=== PATIENT | female | born 1955 | race Caucasian/White ===

== ENCOUNTER 2017-04-02 11:58 | Day surgery (SDC) | payer MEDICAID ==
[~2017-04-02 11:58] MED LIST: Cefuroxime 10 MG/ML SYRINGE EYERT SCH; Lidocaine 1% PF 2 ML SDV INJECT SCH; Pilocarpine 4% Ophth Soln 15 ML Bot EYERT SCH
[2017-04-02] MEDS: Polymyxin B/Trimethoprim 10 ML Bottle EYERT SCH ×3 (14:12→15:41)
[2017-04-02] MEDS: Brimonidine 0.2% Ophth Soln 5 ML Bottle EYERT SCH ×3 (14:17→15:41)
[2017-04-02] MEDS: Phenylephrine 2.5% Ophth Soln 2 ML Bot EYERT SCH ×5 (14:22→15:29)
--- NOTE | 2017-04-02 14:22 | PCM.PREANE ---
Preanesthetic Assessment - Anesthesia/Transfusion/Family Hx Anesthesia History: Prior Anesthesia Without Reaction Family History of Anesthesia Reaction: No Transfusion History: No Prior Transfusion(s) - Review of Systems General: No Symptoms Pulmonary: No Symptoms Cardiovascular: No Symptoms Gastrointestinal: No symptoms Neurological: No Symptoms Other: Reports: Easy Bleeding, Easy Bruising - Physical Assessment NPO Status Date: 04/01/17 NPO Status Time: 22:30 Pulse: 75 O2 Sat by Pulse Oximetry: 96 Respiratory Rate: 16 Blood Pressure: 163/80 Temperature: 36.2 C Vital Signs: Last Vital Signs Temp 36.2 C 04/02/17 13:55 Pulse 75 04/02/17 13:55 Resp 16 04/02/17 13:55 BP 163/80 H 04/02/17 13:55 Pulse Ox 96 04/02/17 13:55 Height: 1.6 m Weight: 81.647 kg ASA Class: 2 Mental Status: Alert & Oriented x3 Dentition: Reports: Partial (top) Thyro-Mental Finger Breadths: 3 Mouth Opening Finger Breadths: 2 ROM/Head Extension: Full Lungs: Clear to auscultation, Normal respiratory effort Cardiovascular: Regular Rate, Regular Rhythm, No Murmurs - Allergies Allergies/Adverse Reactions: Allergies Allergy/AdvReac Type Severity Reaction Status Date / Time No Known Allergies Allergy Verified 04/01/17 11:19 - Blood Blood Available: No Product(s) Available: None - Anesthesia Plan Pre-Op Medication Ordered: None - Acknowledgements Anesthesia Type Planned: MAC Pt an Appropriate Candidate for the Planned Anesthesia: Yes Alternatives and Risks of Anesthesia Discussed w Pt/Guardian: Yes Pt/Guardian Understands and Agrees with Anesthesia Plan: Yes PreAnesthesia Questionnaire - SUBSTANCE USE Smoking Status *Q: Never Smoker Tobacco Use Within Last Twelve Months: No Second Hand Smoke Exposure: No Days Per Week of Alcohol Use: 0 Number of Drinks Per Day: 0 Total Drinks Per Week: 0 Recreational Drug Use History: No - HOME MEDS Home Medications: Home Meds Aspirin [Halfprin] 81 mg PO DAILY 04/01/17 [History] B Complex With Vitamin C [Super B Complex-Vitamin C] 1 each PO DAILY 04/01/17 [ History] Cartilage/Collagen/Bor/Hyalur [Joint Health Tablet] 1 each PO DAILY 04/01/17 [ History] Cetirizine [ZyrTEC] 10 mg PO DAILY 04/01/17 [History] Cholecalciferol (Vitamin D3) [Vitamin D3] 400 units PO DAILY 04/01/17 [History] Ibuprofen 200 mg PO Q6H PRN 04/01/17 [History] L. Acidophilus/Pectin, [place] [Acidophilus Capsule] 1 cap PO DAILY 04/01/17 [ History] L.acidoph,Paracasei, B.lactis [Probiotic] 1 each PO DAILY 04/01/17 [History] Magnesium 250 mg PO DAILY 04/01/17 [History] Phenylephrine HCl [Suphedrine PE] 10 mg PO ASDIRECTED PRN 04/01/17 [History] - CURRENT (IN HOUSE) MEDS Current Meds: Current Medications Brimonidine Tartrate (Alphagan 0.2% Ophth Soln) 0 ml EYERT ASDIRECTED SHIN Stop: 04/02/17 18:00 Cefuroxime Sodium (Zinacef) 0 mg EYERT ASDIRECTED SHIN Stop: 04/02/17 18:00 Lidocaine HCl (Xylocaine-Mpf 1%) 1 ml INJECT ASDIRECTED SHIN Stop: 04/02/17 18:00 Phenylephrine HCl (Miguel Angel-Synephrine 2.5% Ophth Soln) 0 ml EYERT ASDIRECTED SHIN Stop: 04/02/17 18:00 Pilocarpine HCl (Pilocar 4% Ophth Soln) 0 ml EYERT ASDIRECTED SHIN Stop: 04/02/17 18:00 Polymyxin/Trimethoprim Sulfate (Polytrim Ophth Soln) 0 ml EYERT ASDIRECTED SHIN Stop: 04/02/17 18:00 Last Admin: 04/02/17 14:12 Dose: 1 drop Tetracaine (Pontocaine 0.5% Ophth Drops) 0 ml EYERT ASDIRECTED SHIN Stop: 04/02/17 18:00 Tropicamide (Mydriacyl 1% Ophth Soln) 0 ml EYERT ASDIRECTED SHIN Stop: 04/02/17 18:00
[2017-04-02] MEDS: Tetracaine 0.5% 2 ML Bottle EYERT SCH ×4 (15:16→15:34)
--- NOTE | 2017-04-02 15:49 | PCM48HPAN ---
Post Anesthesia Note - EVALUATION WITHIN 48HRS OF ANESTHETIC Vital Signs in Normal Range: Yes Patient Participated in Evaluation: Yes Respiratory Function Stable: Yes Airway Patent: Yes Cardiovascular Function Stable: Yes Hydration Status Stable: Yes Pain Control Satisfactory: Yes Nausea and Vomiting Control Satisfactory: Yes Mental Status Recovered: Yes
[2017-04-02 15:52] VITALS: BP 154/74
== END 2017-04-02 15:51 | disposition home or self-care (01) ==
LOC: JD.SDS 11:58
PROVIDERS: ATTEND Ophthalmology
DX: H25.811 Combined forms of age-related cataract, right eye (principal); H25.89 Other age-related cataract; H50.012 Monocular esotropia, left eye; Z79.899 Other long term (current) drug therapy; Z82.49 Family history of ischemic heart disease and other diseases of the circulatory system; Z83.3 Family history of diabetes mellitus
CPT/HCPCS: 66984; A9270; C1780; J0697

== ENCOUNTER 2017-05-09 07:14 | Day surgery (SDC) | payer MEDICAID ==
[~2017-05-09 07:14] MED LIST changes: +Cefuroxime 10 MG/ML SYRINGE EYELF SCH; -Cefuroxime 10 MG/ML SYRINGE EYERT SCH; +Pilocarpine 4% Ophth Soln 15 ML Bot EYELF SCH; -Pilocarpine 4% Ophth Soln 15 ML Bot EYERT SCH
[2017-05-09] MEDS: Polymyxin B/Trimethoprim 10 ML Bottle EYELF SCH ×3 (07:40→09:43)
[2017-05-09] MEDS: Brimonidine 0.2% Ophth Soln 5 ML Bottle EYELF SCH ×3 (07:45→09:43)
[2017-05-09] MEDS: Phenylephrine 2.5% Ophth Soln 2 ML Bot EYELF SCH ×5 (07:50→09:20)
--- NOTE | 2017-05-09 07:54 | PCM.PREANE ---
Preanesthetic Assessment - Procedure Proposed Procedure: Left eye cataract extraction with IOL - Anesthesia/Transfusion/Family Hx Anesthesia History: Prior Anesthesia Without Reaction Transfusion History: No Prior Transfusion(s) - Review of Systems General: No Symptoms Pulmonary: No Symptoms Cardiovascular: No Symptoms Gastrointestinal: No symptoms Neurological: No Symptoms Other: Reports: Easy Bruising - Physical Assessment NPO Status Date: 05/08/17 NPO Status Time: 22:30 O2 Sat by Pulse Oximetry: 97 Respiratory Rate: 17 Vital Signs: Last Vital Signs Temp 36.8 C 05/09/17 07:25 Pulse 73 05/09/17 07:25 Resp 17 05/09/17 07:25 BP 176/95 H 05/09/17 07:25 Pulse Ox 97 05/09/17 07:25 Height: 1.6 m Weight: 81.647 kg ASA Class: 2 Mental Status: Alert & Oriented x3 Dentition: Reports: Partial (top front ) Thyro-Mental Finger Breadths: 3 Mouth Opening Finger Breadths: 3 ROM/Head Extension: Full Lungs: Clear to auscultation, Normal respiratory effort Cardiovascular: Regular Rate, Regular Rhythm - Allergies Allergies/Adverse Reactions: Allergies Allergy/AdvReac Type Severity Reaction Status Date / Time No Known Allergies Allergy Verified 05/08/17 16:45 - Blood Blood Available: No Product(s) Available: None - Anesthesia Plan Pre-Op Medication Ordered: None - Acknowledgements Anesthesia Type Planned: MAC Pt an Appropriate Candidate for the Planned Anesthesia: Yes Alternatives and Risks of Anesthesia Discussed w Pt/Guardian: Yes Pt/Guardian Understands and Agrees with Anesthesia Plan: Yes PreAnesthesia Questionnaire - SUBSTANCE USE Smoking Status *Q: Never Smoker Tobacco Use Within Last Twelve Months: No Second Hand Smoke Exposure: No Days Per Week of Alcohol Use: 0 Number of Drinks Per Day: 0 Total Drinks Per Week: 0 Recreational Drug Use History: No - HOME MEDS Home Medications: Home Meds Aspirin [Halfprin] 81 mg PO DAILY 04/01/17 [History] B Complex With Vitamin C [Super B Complex-Vitamin C] 1 each PO DAILY 04/01/17 [ History] Cartilage/Collagen/Bor/Hyalur [Joint Health Tablet] 1 each PO DAILY 04/01/17 [ History] Cetirizine [ZyrTEC] 10 mg PO DAILY 04/01/17 [History] Cholecalciferol (Vitamin D3) [Vitamin D3] 400 units PO DAILY 04/01/17 [History] Ibuprofen 200 mg PO Q6H PRN 04/01/17 [History] L. Acidophilus/Pectin, [place] [Acidophilus Capsule] 1 cap PO DAILY 04/01/17 [ History] L.acidoph,Paracasei, B.lactis [Probiotic] 1 each PO DAILY 04/01/17 [History] Magnesium 250 mg PO DAILY 04/01/17 [History] Phenylephrine HCl [Suphedrine PE] 10 mg PO ASDIRECTED PRN 04/01/17 [History] - CURRENT (IN HOUSE) MEDS Current Meds: Current Medications Brimonidine Tartrate (Alphagan 0.2% Ophth Soln) 0 ml EYELF ASDIRECTED SHIN Stop: 05/09/17 18:00 Cefuroxime Sodium (Zinacef) 0 mg EYELF ASDIRECTED SHIN Stop: 05/09/17 18:00 Lidocaine HCl (Xylocaine-Mpf 1%) 10 ml INJECT ASDIRECTED SHIN Stop: 05/09/17 18:00 Phenylephrine HCl (Miguel Angel-Synephrine 2.5% Ophth Soln) 0 ml EYELF ASDIRECTED SHIN Stop: 05/09/17 18:00 Pilocarpine HCl (Pilocar 4% Ophth Soln) 0 ml EYELF ASDIRECTED SHIN Stop: 05/09/17 18:00 Polymyxin/Trimethoprim Sulfate (Polytrim Ophth Soln) 0 ml EYELF ASDIRECTED SHIN Stop: 05/09/17 18:00 Last Admin: 05/09/17 07:40 Dose: 1 drop Tetracaine HCl (Tetracaine 0.5% Steri-Unit Katherine) 0 ml EYELF ASDIRECTED SHIN Stop: 05/09/17 18:00 Tropicamide (Mydriacyl 1% Ophth Soln) 0 ml EYELF ASDIRECTED SHIN Stop: 05/09/17 18:00
[2017-05-09] MEDS: Tetracaine HCl/PF 0.5% 4 ML Bottle EYELF SCH ×2 (09:14→09:32)
[2017-05-09 09:56] VITALS: BP 164/90
== END 2017-05-09 09:52 | disposition home or self-care (01) ==
LOC: JD.SDS 07:14
PROVIDERS: ATTEND Ophthalmology
PROC: 08RK3JZ Replacement of Left Lens with Synthetic Substitute, Percutaneous Approach (ICD-10-PCS; principal; 2017-05-09)
DX: H25.89 Other age-related cataract (principal); H50.012 Monocular esotropia, left eye; Z98.41 Cataract extraction status, right eye; Z96.1 Presence of intraocular lens; Z79.82 Long term (current) use of aspirin; Z79.899 Other long term (current) drug therapy; Z98.890 Other specified postprocedural states
CPT/HCPCS: 66984; A9270; C1780; J0697